=== PATIENT | female | born 1970 | race Two or more races ===

== ENCOUNTER 2021-11-27 10:03 | Outpatient (CLI) | payer OTHER ==
[~2021-11-27 10:03] MED LIST: CIPRO500 MG PO; COLACE100 MG PO; PERCOCET 5/3251 TAB PO
== END 2021-11-27 10:04 | disposition home or self-care (01) ==
LOC: NUCLEAR 10:03
DX: M79.605 Pain in left leg (principal); M79.662 Pain in left lower leg

== ENCOUNTER 2021-11-28 07:18 | Outpatient (CLI) | payer OTHER | END 2021-11-28 13:57 | disposition home or self-care (01) | LOC: NUCLEAR 07:18 | DX: M79.605 Pain in left leg (principal); M79.662 Pain in left lower leg ==